=== PATIENT | male | born 1970 | race African-American/Black ===

== ENCOUNTER 2018-06-25 03:09 | Emergency (ER) | payer OTHER ==
[~2018-06-25] VITALS: Ht 170.2 cm; Wt 98.0 kg
[2018-06-25] MEDS ORDERED: NORFLEX100 MG PO (04:18)
[2018-06-25] MEDS ORDERED: TRAMADOL 50 MG50 MG PO (04:18)
[2018-06-25] MEDS ORDERED: NAPROSYN500 MG PO (04:18)
[2018-06-25 05:37] VITALS: BP 152/88
== END 2018-06-25 05:42 | disposition home or self-care (01) ==
LOC: ER 03:09
DX: S80.02XA Contusion of left knee, initial encounter (principal); S20.212A Contusion of left front wall of thorax, initial encounter; M54.5 Low back pain; F17.210 Nicotine dependence, cigarettes, uncomplicated; V89.0XXA Person injured in unspecified motor-vehicle accident, nontraffic, initial encounter; Y93.89 Activity, other specified; Y92.89 Other specified places as the place of occurrence of the external cause; Y99.8 Other external cause status